=== PATIENT | female | born 1965 ===

== ENCOUNTER 2025-01-09 21:04 | Emergency (ER) | payer BC, SELFPAY ==
[2025-01-09 21:09] VITALS: BP 152/82; PULSE 75; RESP 16; TEMP 37.2; O2SAT 98; BMI 23.6
--- NOTE | 2025-01-09 21:12 | ED_ITS ---
HPI - General Adult General Chief complaint: Extremity Pain/Injury, Lower Stated complaint: Fall, left knee, right ankle Time Seen by Provider: 01/09/25 21:12 History of Present Illness HPI narrative: stepped off stair and roll R ankle. denies hx of other injuries to this ankle. L knee scrape. denies other injuries. took 800 ibuprofen 51-year-old woman presenting to the emergency department with primary complaint of pain in the right ankle. She was wearing flip-flops and somehow stepped off the stair maybe onto her boots that were there and rolled her ankle. Has been unable to bear weight. Also landed on her left knee. Can bear weight on the left leg. Does not describe hitting her head. No complaint of back or neck pain. Took 800 mg of Advil. Not sure that she could tolerate icing at this point as even light touch is terribly painful. Related Data Home Medications ?Medication ?Instructions ?Recorded ?Confirmed lisinopril .ROUTE 01/09/25 Allergies Allergy/AdvReac Type Severity Reaction Status Date / Time bee venom protein (honey bee) Allergy Verified 01/09/25 21:11 Review of Systems Status of ROS: Reports: 6 or more systems reviewed and unremarkable except as noted in History and below Exam Narrative: Exam Narrative: Arrives in wheelchair. Pleasant. Clearly uncomfortable. Right leg elevated somewhat on to the exam bed. Breathing easily. There is a small abrasion on the anterior left knee without notable swelling. She flexes and extends at this knee joint without apparent difficulty. The right ankle is notably swollen over both malleoli. Exquisitely tender to palpation particularly over the lateral malleolus. I would not be able to do reliable testing of ligamentous structures due to pain at this time. Const: Vital Signs, click to edit/add: Vital Signs - 24 hr 01/09/25 21:09 Temperature 98.9 F Pulse Rate [Pulse Oximeter] 75 Respiratory Rate 16 Blood Pressure [Ri ght Upper Arm] 152/82 H Pulse Oximetry 98 Oxygen Delivery Me thod Room Air Documenting provider has reviewed patient's vital signs: yes Course Vital Signs Vital signs: Initial Vital Signs Temperature 98.9 F 01/09/25 21:09 Temperature Source Temporal Artery Scan 01/09/25 21:09 Pulse Rate 75 01/09/25 21:09 Respiratory Rate 16 01/09/25 21:09 Blood Pressure 152/82 H 01/09/25 21:09 Blood Pressure Mean 105 01/09/25 21:09 Blood Pressure Position Sitting 01/09/25 21:09 Pulse Oximetry 98 01/09/25 21:09 Oxygen Delivery Method Room Air 01/09/25 21:09 Vital Signs Temperature 98.9 F 01/09/25 21:09 Pulse Rate 75 01/09/25 21:09 Respiratory Rate 16 01/09/25 21:09 Blood Pressure 152/82 H 01/09/25 21:09 Pulse Oximetry 98 01/09/25 21:09 Oxygen Delivery Method Room Air 01/09/25 21:09 Temperature 98.9 F 01/09/25 21:09 Pulse Rate 75 01/09/25 21:09 Respiratory Rate 16 01/09/25 21:09 Blood Pressure 152/82 H 01/09/25 21:09 Pulse Oximetry 98 01/09/25 21:09 Oxygen Delivery Method Room Air 01/09/25 21:09 Medical Decision Making MDM Narrative Medical decision making narrative: I do have concerns of possible distal fibular fracture but certainly at least ankle sprain. Cannot pass [place] ankle rules. Does not feel she wants any medication at this time or icing. I have ordered x- rays of the right ankle. X-ray the right ankle independently reviewed by me does show oblique fracture of the distal fibula/lateral malleolus. I do think there is some mild displacement and I think there is mild widening of the medial joint space consistent with mortise disruption. There may be a small fracture off the posterior aspect of the distal tibia. Did call to Orthopedics to arrange follow-up. They expressed similar concerns of this ankle joint. I did return to place in a padded Freddie Owen splint. Given crutches. See patient discharge plan for further discussion You might consider applying ice packs. I like those ice bags with the screw top lid that you can feel with ice and water. Wrap on with an James wrap. Of course though this requires removing the splint to be effective. Otherwise elevate for comfort. Can take up to 800 mg of ibuprofen or up to 1000 mg of acetaminophen per dose. I am prescribing some [place] from [facility]. Keep in mind that each tablet of [place] contains 325 mg of acetaminophen. Recommendations are not to bear weight on this foot at this time. So of course dispensing crutches. Anticipate a call from Orthopedics sometime tomorrow to schedule follow-up likely later this week. If you do not hear from them by noon tomorrow feel free to call [phone] arrange follow-up. Discharge Plan Discharge Clinical Impression: Fracture of distal fibula Patient Disposition: Home w/ Parent or Adult Condition: Stable Additional Instructions: You might consider applying ice packs. I like those ice bags with the screw top lid that you can feel with ice and water. Wrap on with an James wrap. Of course though this requires removing the splint to be effective. Otherwise elevate for comfort. Can take up to 800 mg of ibuprofen or up to 1000 mg of acetaminophen per dose. I am prescribing some [place] from [facility]. Keep in mind that each tablet of [place] contains 325 mg of acetaminophen. Recommendations are not to bear weight on this foot at this time. So of course dispensing crutches. Anticipate a call from Orthopedics sometime tomorrow to schedule follow-up likely later this week. If you do not hear from them by noon tomorrow feel free to call [phone] arrange follow-up. Prescriptions: No Action lisinopril .ROUTE Follow Up/Referrals: Clayton Morin MD [Primary Care Provider, PRN OCCUPATIONAL THERAPIST] Stand Alone Forms: [facility] Info Instructions
--- NOTE | 2025-01-09 21:20 | CRLHL7_ITS ---
For Patients: As a result of the Century Cures Act, medical imaging exams and procedure reports are released immediately into your electronic medical record. You may view this report before your referring provider. If you have questions, please contact your health care provider. Indication: Trauma. Technique: Right ankle, 3 views. Comparison: None. Findings/Impression: Bones: Acute mildly displaced oblique lateral malleolar fracture (Maciel B). Additional acute minimally displaced posterior malleolar fracture, best seen on lateral imaging. Joint spaces: Trace widening of the medial clear space. Associated joint effusion. Soft tissues: Associated soft tissue swelling about the lateral malleolus. Dictated by Hugo Black MD @ 01/09/2025 10:02:40 PM (Electronically Signed)
--- NOTE | 2025-01-09 21:30 | PC.NURSE ---
imaging to room
--- OUTSIDE RECORDS SUMMARY | 2025-01-09 21:44 | XMS_ITS | Data Portability ---
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 We discussed etiology, activity modifications, home care, and other treatment options. Initially, it is recommended that the patient receive in-office treatment 1 times per week for 8 weeks at which time a re-evaluation will be performed to determine an appropriate change in plan. Initially, treatment will focus on joint manipulation to restore range of motion and reduce pain. We will slowly progress to therapeutic exercises and activities to improve function, strength, and stability may also be used as warranted. If the patient is not responding as expected, more invasive procedures will be discussed along with a referral. All considerations above were discussed with the patient and questions answered to satisfaction. If the patient should have any additional questions, or should the condition evolve or worsen, the patient should not hesitate to contact our office. Not available 10/05/2024 19:57:50 10/10/2024 10/10/2024 ASSESSMENT: Patient is a good candidate for conservative care and the prognosis is for a favorable outcome that achieves the patients' goals. We discussed etiology, activity modifications, home care, and other treatment options. Initially, it is recommended that the patient receive in-office treatment 1 times per week for 8 weeks at which time a re-evaluation will be performed to determine an appropriate change in plan. Initially, treatment will focus on joint manipulation to restore range of motion and reduce pain. We will slowly progress to therapeutic exercises and activities to improve function, strength, and stability may also be used as warranted. If the patient is not responding as expected, more invasive procedures will be discussed along with a referral. All considerations above were discussed with the patient and questions answered to satisfaction. If the patient should have any additional questions, or should the condition evolve or worsen, the patient should not hesitate to contact our office. Not available 10/10/2024 18:51:00 10/18/2024 10/18/2024 ASSESSMENT: Patient is a good candidate for conservative care and the prognosis is for a favorable outcome that achieves the patients' goals. We discussed etiology, activity modifications, home care, and other treatment options. Initially, it is recommended that the patient receive in-office treatment 1 times per week for 8 weeks at which time a re-evaluation will be performed to determine an appropriate change in plan. Initially, treatment will focus on joint manipulation to restore range of motion and reduce pain. We will slowly progress to therapeutic exercises and activities to improve function, strength, and stability may also be used as warranted. If the patient is not responding as expected, more invasive procedures will be discussed along with a referral. All considerations above were discussed with the patient and questions answered to satisfaction. If the patient should have any additional questions, or should the condition evolve or worsen, the patient should not hesitate to contact our office. Not available 10/18/2024 19:48:47 Plan of Treatment Reminders Order Date Submit Date Provider Last Modified By Organization Details Last Modified Time Details Appointments None record ed. Lab None record ed. Referral None record ed. Procedures None record ed. Surgeries None record ed. Imaging None record ed. Medication Orders None record ed. Patient TargetsNo targets recorded. Patient InstructionsNo instructions recorded. Reason for Referral None Reported. Problems Name Problem SNOMED Code Status Onset Date Resolution Date Notes Provider Name and Address Organization Details Recorded Time Neck pain 20936093 Active 2024 [facility] [place] [address], [facility] [place], [address], [facility] 19:57:51 Cervical segmental dysfunction 259223315 Active 2024 [facility] [place], [place] [address], [facility] [place], [address], [facility] 19:57:51 Thoracic segmental dysfunction 092255082 Active 2024 [facility] [place] [address], [place], [address], [facility] 19:57:51 Lumbar segmental dysfunction 185973450 Active 2024 Mendez Stephen [place] [address], [place], [address], [facility] 19:57:51 Lesion of lumbar spine 449468646 Active 2024 [facility] [place] [address], [place], [address], [facility] 19:57:51 Problem Notes None recorded. Procedures Surgical History Date Name Laterality Status Provider Name and Address Organization Details Recorded Time 34466: Spinal manipulation , 3 to 4 regions completed [facility] Preston Hailee[address], [place], [address], [facility] 10/18/2024 19:48:47 94699: Spinal manipulation , 3 to 4 regions completed [facility] Preston Stephen[address], [place], [address], [facility] 10/10/2024 18:51:00 26895: Spinal manipulation , 3 to 4 regions completed [facility] Anjelica[address], [place], [address], [facility] 10/05/2024 19:58:09 Imaging Results None recorded. Procedure Notes None recorded. Medical Equipment None Reported. Medications Name Sig Start Date Stop Date Status Note LastModified by Organization Details LastModified Time buspirone 10 mg tablet TAKE 1 TABLET BY MOUTH TWICE DAILY active Not Available Not Available No t Available lisinopril 10 mg tablet TAKE 1 TABLET BY MOUTH ONCE DAILY active Not Available Not Available No t Available epinephrine 0.3 mg/0.3 mL injection, auto-injector INJECT CONTENTS OF 1 PEN NEEDED FOR ALLERGIC REACTION DIRECTED active Not Available Not Available No t Available Vitals None Recorded Social History None recorded. Functional Status None recorded. Mental Status None recorded. Family History Nothing Reported. Medical History No medical history recorded. Gynecological HistoryNo gynecological history recorded. Obstetrics History GPAL:G 0 P 0 0 0 0 Past Encounters Encounter ID Performer Location Encounter Start Date Encounter Closed Date Diagnosis/Indication Diagnosis SNOMED-CT Code Diagnosis ICD10 Code Diagnosis Note [id number] Mendez Stephen [place] [facility] [address] [place] [address] 10/05/2024 14:59:02 10/06/2024 11:20:42 Cervical segmental dysfunction 648327348 M99.01 Neck pain 40882301 M54.2 Thoracic s egmental dysfunction 107428658 M99.02 Lumbar seg mental dysfunction 729975774 M99.03 Lesion of lumbar spine 713145988 M99.01 [id number] Mendez Stephen [place] [address] [place] [address] 10/10/2024 14:57:18 10/10/2024 20:34:07 Cervical segmental dysfunction 767332331 M99.01 Neck pain 72022009 M54.2 Thoracic s egmental dysfunction 860106014 M99.02 Lumbar seg mental dysfunction 684247417 M99.03 Lesion of lumbar spine 698763730 M99.01 [id number] Mendez Stephen [place] [address] [place] [address] 10/18/2024 15:11:27 10/20/2024 18:22:57 Cervical segmental dysfunction 164059608 M99.01 Neck pain 00464608 M54.2 Thoracic s egmental dysfunction 361744892 M99.02 Lumbar seg mental dysfunction 919287498 M99.03 Lesion of lumbar spine 322622483 M99.01 Health Concerns Section Related Observation LastModified by Organization Detai ls LastModified Time None Recorded Concern Status LastModified by Organization Details LastModified Time None Recorded Advance Directives Directive None Recorded Payers Insurance Date Sequence Insurance Name Policy Number Policy Boyd Covered Member ID Boyd Member ID Guarantor Name 10/17/2024 1 [employer] [employer] [id number] Ruth Ann Garcia [id number] Ruth Ann Garcia Notes Date Note Type Note Provider Name and Address Organization Details Recorded Time 10/05/2024 text/html HPI - Cervical SpineReported bypatient.Location: left Quality:aching Severity:moderate Duration:2 weeks Timing:gradual Alleviating Factors:ice Aggravating Factors:sitting Associated Symptoms:no numbness/tingling [place], [place] [address], [place], [address], [facility] 10/05/2024 19:58:19 10/10/2024 text/html HPI - Cervical SpineReported bypatient.Location: left Quality:aching Severity:moderate Duration:2 weeks Timing:gradual Alleviating Factors:ice Aggravating Factors:sitting Associated Symptoms:no numbness/tingling Scot [place], [place] [address], [place], [address], [facility] 10/10/2024 18:51:21 10/18/2024 text/html HPI - Cervical SpineReported bypatient.Location: left Quality:aching Severity:moderate Duration:2 weeks Timing:gradual Alleviating Factors:ice Aggravating Factors:sitting Associated Symptoms:no numbness/tingling Scot Preston [place], [place] [address], [place], [address], [facility] 10/18/2024 19:48:58 OBGyn Episode No OBEpisode recorded.
--- OUTSIDE RECORDS SUMMARY | 2025-01-09 21:44 | XMS_ITS | Data Portability ---
Author Organization [facility] [employer], [id number] Address [address] [facility] [place] [place] [address] Assessment No assessment recorded. Plan of Treatment Reminders Order Date Submit Date Provider Last Modified By Organization Details Last Modified Time Details Appointments None record ed. Lab noninv asive colore ctal cancer DNA + occult blood screen ing, QL, stool 2023 024 [facility] (Cologuard Orders Only), [address], [address], [place], [address], 5 09:22:07 Pap test, slide( s), cervic al 2023 024 [facility], [address] [facility], [address], [place], [address], 4 09:37:25 Pap test, slide( s), cervic al 2022 023 [facility], [address] [facility] [place], [address], [place], [address], 3 16:50:33 noninv asive colore ctal cancer DNA + occult blood screen ing, QL, stool 2022 023 [facility] (Cologuard Orders Only), [address], [address], [place], [address], 4 12:40:44 Referral None record ed. Procedures None record ed. Surgeries None record ed. Imaging US, pelvis 2021 Arturo teresitabrittanituchristopher [id number] bijal, [address] [facility], [address], [place], [address], 16:05:55 Medication Orders None record ed. Patient TargetsNo targets recorded. Patient Instructions Encounter Date Encounter Id Patient Instructions Last Modified By Organization Details Last Modified Time 01/04/2023 [id number] - Encouraged breast self-awareness and monthly breast exams. - Calcium and vitamin D intake discussed. - Encouraged regular exercise. - Discussed cervical cancer screening guidelines. - Discussed routine screenings including mammography, colonoscopy and laboratory screening guidelines [facility] Not available 01/04/2023 14:13:38 01/10/2024 [id number] - Encouraged breast self-awareness and monthly breast exams. - Calcium and vitamin D intake discussed. - Encouraged regular exercise. - Discussed cervical cancer screening guidelines. - Discussed routine screenings including mammography, colonoscopy and laboratory screening guidelines [email or web address] Not available 01/10/2024 12:55:55 Reason for Referral None Reported. Results Created Date Observation Date Name Description Value Unit Range Abnormal Flag Note LastModifiedBy Organization Detail LastModifiedTime 11/17/1911/16/2024 COLOG UARD cologuard result Cancel led - Duplic ate Order not applic able Not Available [facility] (Cologuard Orders Only) [address], [place], [address], 11/16/2024 14:21:37 01/04/20 24 01/04/2024 COLOG UARD cologuard result Cancel led - Order d not applic able Not Available [facility] (Cologuard Orders Only) [address], [place], [address], 01/04/2024 12:40:44 12/23/19 23 12/22/2022 COLOG UARD cologuard result Cancel led - Order d not applic able Not Available [facility] (Cologuard Orders Only) [address], [place], [address], 12/22/2022 10:35:34 02/03/20 22 02/02/2022 pregn dary test, urine Unknown Analyte negati ve Not Available [id number]_ [place] [address], [place], [address], 02/02/2022 15:17:26 02/03/20 22 02/02/2022 pregn dary test, urine Unknown Analyte negati ve Not Available [id number] [place] [address] [address], [place], [address], 02/02/2022 15:17:26 01/05/20 23 01/04/2023 GYNEC OLOGI C CYTOL OGY (PAP SMEAR ) gynecologic cytology SEE RESULT S BELOW SPECI MEN SOURC E [place] ing Cervi x 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 Pap tests are prima rily effec tive for the diagn osis/ preve ntion of squam ous cell carci noma, not adeno carci noma or other cance rs. 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 Pap tests are prima rily effec tive for the diagn osis/ preve ntion of squam ous cell carci noma, not adeno carci noma or other cance rs. 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 Stain contr ols for all stain s resul jason withi n this repor t have been revie wed and show appro priat e react ivity . Not Available [facility] [address] [facility] [address], [place], [address], 01/14/2024 09:37:25 02/10/20 22 02/09/2022 US, pelvi s No observ ation record ed. [email or web address] [address], [place], [address], 02/09/2022 15:33:10 01/06/20 23 01/05/2023 2D/3D scree sarah mammo gram No observ ation record ed. [email or web address] [address] [facility], [place], [address], 01/05/2023 13:50:02 01/10/20 24 01/10/2024 MAMMO , scree sarah, digit al, bilat eral, w/ CAD No observ ation record ed. [email or web address] [facility] [address] [facility], [place], [address], 01/11/2024 09:57:03 Result Notes None recorded. 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 Procedures Surgical History Date Name Laterality Status Provider Name and Address Organization Details Recorded Time 4 Date of Last Pap Smear completed Ирина Bo [facility] [employer] 01/14/2024 09:44:48 4 Date of Last Mammogram completed Destiny Tijerina [facility] [employer] 01/10/2024 12:57:45 2 IUD Insertion Procedure Note ([facility]) completed [facility] [employer] 02/13/2022 15:22:23 2 IUD Insertion Procedure Note ([facility]) completed Jayshree Chanel (TERMED) [facility] [employer] 02/02/2022 15:18:02 2 IUD Removal Procedure Note ([facility]) [place] [address] [facility],[address], [place], [address], [facility] [employer] 12/22/2021 15:54:48 Breast Implants completed [facility] [employer] 11/18/2020 14:17:25 Imaging Results None recorded. Procedure Notes None recorded. Medical Equipment None Reported. Allergies Allergen ID Allergen Name Allergen Category Reaction Reaction Severity Criticality Documentation Date Start Date Code Code System Note Provider Name and Address Organization Details Recorded Time 19790830 insect venom environme nt anaphylax is respirato ry distress Not available Not available Not available 11/18/2020 12577 UNK Ирина Bo null, [place] [facility] [employer] [employer] 1 14:16:49 [id number] Substance with sulfonami de structure and antibacte rial mechanism of action (substanc e) medicatio n other Not available Not available 01/04/2023 00854 8003 SNOMED Jonh Hemstock dorita, [place] - [facility] [employer] 3 14:14:30 Medications Name Sig Start Date Stop Date Status Note LastModified by Organization Details LastModified Time Mirena 21 mcg/24 hr (up to 8 years) 52 mg intrauter ine device Take by intraute rine route. 2021 active Inserted 02/14/20 22 Not Available Not Available Not Available fluconazo le 150 mg tablet TAKE 1 TABLET BY MOUTH AND ADDITION AL TABLET 3 DAYS LATER. 01/04 completed Not Available Not Available Not Available metronida zole 0.75 % (37.5 mg/5 gram) vaginal gel INSERT 1 APPLICAT ORFUL VAGINALL Y ONCE DAILY FOR 5 DAYS 12/22 completed Not Available Not Available Not Available prednison e 20 mg tablet 12/22 completed Not Available Not Available Not Available terbinafi ne HCl 250 mg tablet TAKE 1 TABLET BY MOUTH ONCE DAILY 11/18 completed Not Available Not Available Not Available cephalexi n 500 mg capsule TAKE 1 CAPSULE BY MOUTH THREE TIMES DAILY FOR 7 DAYS 01/04 completed Not Available Not Available Not Available buspirone 10 mg tablet TAKE 1 TABLET BY MOUTH TWICE DAILY active Not Available Not Available No t Available lisinopri l 10 mg tablet TAKE 1 TABLET BY MOUTH ONCE DAILY active Not Available Not Available No t Available misoprost ol 200 mcg tablet Take 2 tablets by oral route as directed . 02/13 completed Not Available Not Available Not Available epinephri ne 0.3 mg/0.3 mL injection , auto-inje ctor INJECT CONTENTS OF 1 PEN NEEDED FOR ALLERGIC REACTION DIRECTED active Not Available Not Available No t Available doxycycli ne hyclate 100 mg tablet TAKE 1 TABLET BY MOUTH TWICE DAILY FOR 5 DAYS 01/09 completed Not Available Not Available Not Available amoxicill in 875 mg-potass ium clavulana te 125 mg tablet TAKE 1 TABLET BY MOUTH TWICE DAILY WITH MEALS FOR 5 DAYS 01/09 completed Not Available Not Available Not Available EpiPen active Not Available Not Availa ble Not Available BinaxNOW COVID-19 Ag Self Test kit Use as Directed on the Package 01/04 completed Not Available Not Available Not Available Vitals Date Recorded Body height Body mass index (BMI) Body weight Systolic And Diastolic Provider Name and Address Organization Details Last Updated DateTime 01/04/2023 175.26 cm 25.5 kg/m2 29496.48 g 120/80 mm[Hg] Jonh [facility] - [employer] 01/04/2023 14:23:24 Date Recorded Body weight Systolic And Diastolic Provider Name and Address Organization Details Last Updated DateTime 01/10/2024 62051.77 g 120/76 mm[Hg] Sherice Reyna (TERMED) [facility] [employer] 01/10/2024 15:12:27 Date Recorded Body height Body mass index (BMI) Body weight Systolic And Diastolic Provider Name and Address Organization Details Last Updated DateTime 02/09/2022 175.26 cm 10.8 kg/m2 89461.24 g 130/82 mm[Hg] Maranda Costello(TER M) [facility] [employer] 02/09/2022 15:21:26 Date Recorded Body height Systolic And Diastolic Provider Name and Address Organization Details Last Updated DateTime 02/13/2022 175.26 cm 122/80 mm[Hg] Yessi Richie(TERM) [facility] [employer] 02/13/2022 14:29:38 Social History Question Answer Notes LastModified by Organizat ion Details LastModified Time Tobacco Smoking Status Former Smoker Yelena kevin, [facility] [employer] 11/18/2020 09:14:25 Do You Have An Advance Directive? No [email or web address] Information not available 01/04/2023 Is Blood Transfusion Acceptable In An Emergency? Yes [email or web address] Information not available 01/04/2023 What Is Your Level Of Caffeine Consumption? None [email or web address] Information not available 01/04/2023 How Much Tobacco Do You Chew? None [email or web address] Information not available 01/04/2023 What Type Of Diet Are You Following? REGULAR [email or web address] Information not available 01/04/2023 History Of Domestic Violence No Information no t available 11/18/2020 Marital Status Single [email or web address] Informatio n not available 01/04/2023 What Is Your Relationship Status? [email or web address] Information not available 01/04/2023 Are You Sexually Active? Yes Information not available 12/22/2021 Sex: Unknown Functional Status Question Answer Note LastModified by Organizat ion Details LastModified Time What is your level of alcohol consumption? Moderate Information not available 11/18/2020 Are you currently employed? 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 Never used electronic cigarettes [email or web address] Information not available 01/04/2023 What is your exercise level? Occasional [email or web address] Information not available 01/04/2023 Mental Status None recorded. Family History Relationship Description Onset Age of this Age Resolved Age Notes LastModified by Organization Details LastModified Time Mother Malignant neoplasm of uterus [email or web address] Not available 09:13:57 Mother Malignant neoplasm of lung [email or web address] Not available 2023 15:02:58 Paternal Aunt Malignant tumor of breast [email or web address] Not available 2021 15:03:05 Sister Malignant tumor of breast 52 KANE mutati on Not available 12/22/2021 15:20:00 Medical History Condition Response ID- Usual childhood diseases- Chicken Po x Y Cardiology- High Blood Pressure Y Gynecological History Statement/Question Response Sexually Active Y History of Abnormal PAP N HPV Test Negative Date of Last Mammogram 01/10/2024 Date of Last Colonoscopy Date of LMP 01/29/2022 History of Sexually Transmitted Infectio n N Y HPV Vaccine Not Applicable Current Control Method IUD Date of Last Pap Smear 01/10/2024 15 Post Menopausal Hormone Therapy User Nev er Obstetrics History GPAL:G 2 P 2 0 0 2 Type Value Multiple Births 0 Full Term 2 Induced 0 Spontaneous 0 Premature 0 Living 2 Ectopics 0 Total 2 Past Encounters Encounter ID Performer Location Encounter Start Date Encounter Closed Date Diagnosis/Indication Diagnosis SNOMED-CT Code Diagnosis ICD10 Code Diagnosis Note [id number] SIMIN SHINE MD [id number] T_ROBB SHINEA [address] [address] [place] [address] 11/18/2020 14:01:26 11/18/2020 14:43:11 Gynecologic examination 17804129 Z01.419 Patient reluctant to have IUD removed has concerns over bleeding mother went to menopause very late. We will keep her 1 more year and remove it next year [id number] SIMIN SHINE MD [id number] T_ROBB SHINEA [address] [address] [place] [address] 12/22/2021 15:27:21 12/22/2021 16:00:17 Gynecologic examination 96108976 Z01.419 Allergy to bee venom 424 330864 Z91.030 Hypertensive disorder 38 944574 I10 Screening for malignant neoplasm of colon 236536500 Z12.11 Family his tory of breast cancer 560394776 Z80.3 sister brca pos Removal of intrauterine device 95582439 Z30.607 [id number] MD LAKESHIA ALFONSO_NAVEEN Felix_EDUARDOKUMAR [address] [facility] [place] [address] 01/13/2022 15:02:59 01/13/2022 15:39:30 Family history of breast cancer 642080428 Z80.3 sister brca pos [id number] MD [facility] ESPINAL [address] [address] [place] [address] 02/02/2022 14:55:48 02/02/2022 15:26:44 Insertion of intrauterine contraceptive device 87146355 Z30.430 Postmenopa usal bleeding 49932562 N95.0 Patient with a large volume of bleeding after IUD removal. States her mother went through menopause fairly light. Discussed implicatio ns of bleeding at 56. Want to rule out endometria l issues i.e. endometria l cancer prior to any interventi on. We will perform ultrasound if greater than 4 mm we will proceed with a endometria l biopsy then discuss long-term management of issues [id number] MD KIRSTIN ALFONSO005_NAVEEN GoldsteinCLARAMERCEDEZ SHINE [address] [address] [place] [address] 02/09/2022 14:57:08 02/09/2022 15:44:04 Postmenopausal bleeding 48289965 N95.0 Patient with stable endometria l thickness but myomatous uterus. 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 Is considerin g her options but may return for a da Shahrzad hysterecto my and bilateral salpingo-o ophorectom y Uterine leiomyoma 077940 05 D25.9 Family his tory of breast cancer 325881125 Z80.3 sister brca pos kane pos [id number] SIMIN SHINE MD [id number]_HLCNAVEEN ESPINAL [address] [address] [place] [address] 02/09/2022 14:57:11 02/09/2022 15:55:18 Postmenopausal bleeding 55989463 N95.0 [id number] SIMIN SHINE MD SY059_JZZNAVEEN ESPINAL [address] [place] [address] 02/13/2022 14:14:29 02/13/2022 14:50:04 Insertion of intrauterine contraceptive device 70532994 Z30.478 [id number] MD KIRSTIN ALFONSO005_NAVEEN ESPINAL [address] [address] [place] [address] 01/04/2023 14:00:50 01/04/2023 14:53:49 Gynecologic examination 15556220 Z01.419 Screening for malignant neoplasm of colon 718178812 Z12.11 [id number] SIMIN SHINE MD [id number]_NNZNAVEEN ESPINAL [address] [address] [place] [address] 01/10/2024 15:02:56 01/10/2024 15:45:57 Gynecologic examination 41354024 Z01.419 Patient still considerin g hysterecto my for fibroids in her positive genetic markers increase your risk of multiple breast and ovarian cancer. Screening for malignant neoplasm of colon 698783812 Z12.11 Screening for malignant neoplasm of cervix 180928307 Z12.4 Health Concerns Section Related Observation LastModified by Organization Detai ls LastModified Time None Recorded Concern Status LastModified by Organization Details LastModified Time None Recorded Advance Directives Directive N: Payers Insurance Date Sequence Insurance Name Policy Number Policy Boyd Covered Member ID Boyd Member ID Guarantor Name 01/14/2024 1 [place] [employer] 112 Ruth Ann Garcia [id number] Ruth Ann Garcia Notes Date Note Type Note Provider Name and Address Organization Details Recorded Time 02/09/2022 text/html Review u/s:pt wi th post menopausal bleeding had ultrasound today which showed endometrial thickness of 2.3 mm. Also revealed [place] [address] [address] [facility], [place], [address], [place] - [facility] [employer] 02/09/2022 15:45:10 01/04/2023 text/html Annual Postmenop ausal ([facility])Reported bypatient.Patient Relationship To Practice:established patient Current Medical History:active medical problems stable; no recent surgeries or hospitalizations Relevant Family History:family history of breast cancer;family history of uterine cancer; no family history of ovarian cancer; no family history of colon cancer; no family history of blood clots/DVT Menopausal Symptoms:not present Vaginal Bleeding:no Sexually Active:Yes: STI Screen:declines Health/Prevention:Exer cise: yes; Vitamin D: no; Adequate Calcium Intake: yes; Breast Self Exam: yes; Tobacco Use: no; Safe at home: yes; Mental Health Screen: normal; Breast/Ovarian CA Screening: yes Mammogram:up-to-date Pap Smear +/- HPV Cotesting:up-to-date; 12-22-2021- negative pap, negative hpv Thyroid/Lipid Screening:due Colonoscopy:dueNotes:r equesting [facility] labs. patient still considering definitive therapy for her family history. At this point no other complaints was able to get the MRI done last year from a breast cancer standpoint. Mammogram today The patient completed the familial health questionnaire. She is at high risk for a genetic cancer syndrome.Hereditary Cancer Risk Assessment HPI.Risk The patient completed the familial health questionnaire. She is at high risk for a genetic cancer syndrome. A known gene mutation in your family? Yes Three or more diagnoses of breast cancer on the same side of the family? Yes Breast or prostate cancer in 3 or more relatives on the same side of the family? Yes Imported from [employer] on 01/04/2023 The patient completed the familial health questionnaire. She is [place] [address] [address], [place], [address], [place] - [facility] [employer] 01/04/2023 14:36:27 01/10/2024 text/html Annual Postmenop ausal ([facility])Reported bypatient.Patient Relationship To Practice:established patient Current Medical History:active medical problems stable; no recent surgeries or hospitalizations Relevant Family History:family history of breast cancer;family history of uterine cancer; no family history of ovarian cancer; no family history of colon cancer; no family history of blood clots/DVT Menopausal Symptoms:not present HRT:never on HRT Vaginal Bleeding:no Sexually Active:Yes: STI Screen:declines Health/Prevention:Exer cise: yes; Vitamin D: no; Breast Self Exam: yes; Safe at home: yes Mammogram:up-to-date; 01/10/2024 Pap Smear +/- HPV Cotesting:up-to-date; 01-04-2023- negative pap, Thyroid/Lipid Screening:due Colonoscopy:due Patient has:Primary Care Physician: noNotes:Pt presents for annual exam. no questions/concerns. nb/rn The patient completed the familial health questionnaire. She is at for a genetic cancer syndrome.Hereditary Cancer Risk Assessment HPI.Risk The patient completed the familial health questionnaire. She is at high risk for a genetic cancer syndrome. A known gene mutation in your family? Yes Three or more diagnoses of breast cancer on the same side of the family? Yes Breast or prostate cancer in 3 or more relatives on the same side of the family? Yes Imported from [facility] on 01/10/2024 [place] [address] [facility],[address], [place], [address], [place] - [facility] [employer] 01/10/2024 15:42:05 OBGyn Episode No OBEpisode recorded.
--- OUTSIDE RECORDS SUMMARY | 2025-01-09 21:44 | XMS_ITS | Clinical Summary ---
Author Organization [employer] [facility] Address [address] [place] [id number] Care Team Providers Care Software Specialist Name Role Phone Radha Arriola Unavailable Unavailable Pau Guerrero Primary Care Provider [phone] Allergies Active Allergy Reactions Criticality Noted Date Comments Hymenoptera Allergenic Extract Rash,Tongue Swelling High 04/02/2008 Redness every where Medications EPINEPHrine (EpiPen) 0.3 mg/0.3 mL injectionIndicat ions:Anaphylaxis , initial encounter,Bee sting, accidental or unintentional, initial encounter Inject 0.3 mg intramuscular one time if needed for Allergic Reaction for up to 1 dose. 2 Each 3 02/16/20 21 Active lisinopriL (PRINIVIL; ZESTRIL) 10 mg tabletIndication s:Essential hypertension Take 1 tablet by mouth once daily 90 Tablet 1 07/27/19 22 Active busPIRone (BUSPAR) 10 mg tabletIndication s:Anxiety TAKE 1 TABLET BY MOUTH THREE TIMES DAILY 90 Tablet 01/27/20 22 Active levonorgestrel (Mirena) 20 mcg/24 hours (8 yrs) 52 mg intrauterine device (IUD) Take by intrauterine route. 02/14/20 22 Active Active Problems Problem Noted Date Diagnosed Date Anxiety 07/23/2020 Essential hypertension 05/12/2019 MS (multiple sclerosis) 06/15/2014 Overview (07/23/2020): Dx 2004 Immunizations Immunization Administration Dates Next Due Td (Age >=7 Years) 04/14/2005 Tdap 11/07/2015 Family History Medical History Relation Name Comments Good Health Father Cancer Mother lung, endometri um cancer Relation Name Status Comments Father Mother Social History Tobacco Use Types Packs/Day Years Used Date Smoking Tobacco: Former Cigarettes Q uit: 06/28/1996 Smokeless Tobacco: Never Alcohol Use Standard Drinks/Week Comments Yes 4.2 (1 standard drink = 0.6 oz p ure alcohol) PHQ-2 Answer Date Recorded PHQ-2 TOTAL SCORE 0 09/02/2022 Social Connections Answer Date Recorded Frequency of Communication with Friends and Fami ly Not on file 09/07/2023 Financial Resource Strain Answer Date R ecorded Difficulty of Paying Living Expenses 3 08/25/2022 Difficulty of Paying Living Expenses Not on file 08/25/2022 Food Insecurity Answer Date Recorded Worried About Running Out of Food in the Last Ye ar 1 08/25/2022 Transportation Needs Answer Date Record ed Lack of Transportation (Medical) 1 08/25/2022 Housing Stability Answer Date Recorded Unable to Pay for Housing in the Last Year 1 08/25/2022 Comments No Sex and Gender Information Value Date Recorded Sex Assigned at Not on file Legal Sex Female 5:57 AM INTERNAL INVESTIGATOR Gender Identity Not on file Sexual Orientation Not on file Obstetrics History Last Filed Vital Signs Vital Sign Reading Time Taken Comments Blood Pressure 120/64 07/08/2023 12:28 PM INTERNAL INVESTIGATOR Pulse 80 07/08/2023 12:28 PM INTERNAL INVESTIGATOR Temperature 36.6 C (97.9 F) 07/08/2023 12:28 PM INTERNAL INVESTIGATOR Respiratory Rate 18 02/15/2021 6:15 PM CDT Oxygen Saturation 97% 09/02/2022 1:47 PM INTERNAL INVESTIGATOR Inhaled Oxygen Concentration - - Weight 82.1 kg (181 lb) 07/08/2023 12:28 PM INTERNAL INVESTIGATOR Height 175.3 cm (5' 9) 09/02/2022 1:47 PM INTERNAL INVESTIGATOR Body Mass Index 26.73 09/02/2022 1:47 PM INTERNAL INVESTIGATOR Plan of Treatment Health Maintenance Due Date Last Done Comments HIV for age 15-65 1981 Hepatitis C screening for ag e 18-79 1984 Hepatitis B series for 19+ ( 1 of 3 - 19+ 3-dose series) 1985 Colonoscopy through age 75 2011 Pneumococcal series for age 50+ (1 of 1 - PCV) 2016 Zoster (shingles) series for age 50+ (1 of 2) 2016 Mammogram for age 45-75 12/22/2022 12/23/19 22, 12/22/2021, 11/05/2020, Additional history exists BMI (ht and wt on same day) for age 18+ 09/03/2023 09/02/2022, 07/23/2020, 05/12/2019 Depression screening for age 12+ 09/03/2023 09/02/2022, 07/24/2020, 07/23/2020 Pap test for age 21-65 11/19/2023 (Verified in Care Everywhere or Patient Record) COVID-19 vaccine series ( season) 2024 Lipids for age 45-75 05/12/2024 05/12/2019 Influenza Vaccine (#1) 2025 Tetanus booster 11/06/2025 11/07/2015, 04/14/2005 Procedures Procedure Name Priority Date/Time Associated Diagnosis Comments SCAN-MAMMOGRAPHY REPORT 12/22/2021 12:22 PM CDT LIPID PANEL W REFLEX MEASURED LDL Routine 05/12/2019 1:58 PM INTERNAL INVESTIGATOR Lipid screening from Last 3 Months or Most Recently Relevant to Health Maintenance Results * SCAN-MAMMOGRAPHY REPORT (12/22/2021 12:22 PM CDT) Anatomical Region Laterality Modality Other us Scanner OTHER Final Result * LIPID PANEL W REFLEX MEASURED LDL (05/12/2019 1:58 PM INTERNAL INVESTIGATOR) CHOLESTEROL,TOTAL 159 100 - 199 mg/dL 05/12/2019 8:16 PM INTERNAL INVESTIGATOR [facility] TRIGLYCERIDES 43 <150 mg/dL 05/12/2019 8:16 PM INTERNAL INVESTIGATOR [facility] HDL CHOLESTEROL 100 >40 mg/dL 9 8:16 PM INTERNAL INVESTIGATOR [facility] NON-HDL CHOLESTEROL 59 <145 mg/dl 05/12/2019 8:16 PM INTERNAL INVESTIGATOR [facility] CHOL/HDL RATIO 1.59 <4.50 05/12/2019 8:16 PM INTERNAL INVESTIGATOR [facility] LDL CHOLESTEROL 50 <=130 mg/dL 05/12/2019 8:16 PM INTERNAL INVESTIGATOR [facility] PROVIDER ORDERED STATUS RANDOM 05/12/2019 8:16 PM INTERNAL INVESTIGATOR [facility] Blood BLOOD SPECIMEN / Unknown Venipuncture / Unknown 05/12/2019 1:58 PM INTERNAL INVESTIGATOR 05/12/2019 1:59 PM INTERNAL INVESTIGATOR us Niko Dean MD CHEMISTRY Final R esult [facility] [address] [place] [address], from Last 3 Months or Most Recently Relevant to Health Maintenance Insurance [facility] Care Teams Software Specialist Relationship Specialty [place] [address] [place] [address] PCP - General Physician Facility Mechanic 04/13/23 Flako, Obgyn Gynecology Obstetrics and Gynecology 01/03/21
== END 2025-01-09 22:36 | disposition home or self-care (01) ==
PROVIDERS: Emergency Provider Family Medicine; PCP Obstetrics & Gynecology
DX: S82.831A Other fracture of upper and lower end of right fibula, initial encounter for closed fracture (principal); X50.1XXA Overexertion from prolonged static or awkward postures, initial encounter
CPT/HCPCS: 29515; 73610; 99283; 99284

== ENCOUNTER 2025-01-11 10:42 | Outpatient (CLI) | payer BC, SELFPAY | END 2025-01-11 10:43 | disposition home or self-care (01) | LOC: LKVREF 10:42 | PROVIDERS: PCP Obstetrics & Gynecology; Visit Provider Emergency Medicine | DX: I10 Essential (primary) hypertension (principal) | CPT/HCPCS: 80048 ==

== ENCOUNTER 2025-01-17 09:04 | Day surgery (SDC) | payer BC, SELFPAY ==
[2025-01-17] VITALS (20 sets, daily range): BP systolic 103–129; BP diastolic 65–94; PULSE 56–97; RESP 14–73; TEMP 35.3–36.9; O2SAT 96–100; BMI 25.1
[2025-01-17] MEDS: LACTATED RINGERS 1000 ML 1,000 ML 100 ML IV (09:58)
[2025-01-17] MEDS: SODIUM CHLORIDE 0.9 % (FLUSH) 10 ML SYRINGE IVF (09:58)
--- NOTE | 2025-01-17 10:29 | SUR.PREOP ---
TIME?OUT:?1030 PT/RN/MDA?VERIFICATION?OF?SURGICAL?SITE,?PROCEDURE,?AND?CONSENT OBTAINED?PRIOR?TO?INVASIVE?PROCEDURE.
[2025-01-17] MEDS: MIDAZOLAM HCL 1 MG/ML inj IVP (10:32)
--- NOTE | 2025-01-17 11:41 | W.PM.NB ---
Nerve Block Nerve Block Time Seen by Provider: 10:35 Date Seen: 01/17/25 Type of block requested by surgeon for post-operative analgesia: popliteal Side: right Time out performed: Yes Verification of patient name: Yes Verification of date of : Yes Site marking: site marked Name of person performing procedure: Gordo Continuous monitoring Was continuous monitoring of O2 sat, B/P, potline monitor, recorded every 15 minutes?: Yes Procedure Checklist: sterile prep, needles and gloves Ultrasound guided. Images saved: Yes Medications given in 5ml increments after negative aspiration: Marcaine %: 0.25 mL: 20 Needle gauge: 22 Patient tolerated procedure well: Yes Additional comments: Needle noted adjacent to nerve Block Charges Block Charge (with Pro Fee): Sciatic Nerve Use of Ultrasound Machine for Block: Yes- US Guidance/pain block
--- NOTE | 2025-01-17 11:42 | P.ANES_ITS ---
Anesthesia Charges Start Date/Time Anesthesia Start Date: 01/17/25 Anesthesia Start Time: 11:23 Stop Date/Time Anesthesia Stop Date: 01/17/25 Anesthesia Stop Time: 12:46 Coding CPT Codes CPT Codes: ANESTH LOWER LEG BONE SURG - 21858 ([id number]) P2 - PATIENT W/MILD SYST DISEASE, QK - CREW CALLER 2-4 CNCRNT ANES PROC, QX - PAINTER AND DECORATOR SVC W/ MD MED DIRECTION
--- NOTE | 2025-01-17 11:42 | W.ANESCHARGE ---
Anesthesia Charges Start Date/Time Anesthesia Start Date: 01/17/25 Anesthesia Start Time: 11:23 Stop Date/Time Anesthesia Stop Date: 01/17/25 Anesthesia Stop Time: 12:46 Coding CPT Codes CPT Codes: ANESTH LOWER LEG BONE SURG - 23816 ([id number]) P2 - PATIENT W/MILD SYST DISEASE, QK - MANUFACTURING ACCOUNTANT 2-4 CNCRNT ANES PROC, QX - PRINTING EQUIPMENT MECHANIC SVC W/ MD MED DIRECTION
--- NOTE | 2025-01-17 12:31 | P.ORPRC_ITS ---
Procedure Note Date of procedure: 01/17/25 Procedure: PREOPERATIVE DIAGNOSES: 1. Right ankle lateral malleolus fracture (with bimalleolar equivalent) - unstable on stress imaging POSTOPERATIVE DIAGNOSES: 1. Right ankle lateral malleolus fracture (with bimalleolar equivalent) - uns table on stress imaging NAME OF OPERATION: 1. Right ankle lateral malleolus open reduction with internal fixation. 2. Intraoperative fluoroscopy operated and interpreted by Richard Jasso M.D. for intraoperative evaluation of fracture reduction and implant positioning. Fluoroscopy time was 24 seconds. SURGEON: Richard Jasso MD ACQUISITION LEAD: Armani GREENE; Of note, an assistant coach was critical for this case to aide in patient positioning, leg manipulation, tissue retraction, closure, patient safety, & splinting. ANESTHESIA: Spinal +/- popliteal block. EBL: 2 mL IMPLANTS: Arthrex 2.7 mm interfragmentary screw; also 1/3 tubular fibular locking plate with 3.5 mm locking screws. TOURNIQUET: 40 minutes at 250 torr. INDICATIONS: The patient is a pleasant, 59-year-old female who sustained a right ankle injury in the recent past. They had difficulty bearing weight. Workup included xrays which revealed an unstable ankle fracture. Given these fi ndings, surgery was recommended to stablize the ankle. FINDINGS: Closed, displaced right lateral malleolus ankle fracture (Maciel B location). Stress imaging showed increased clear space widening consistent with bimalleolar equivalent injury. PROCEDURE: Following a thorough discussion of risks, benefits, and alternatives, consent was obtained and the right ankle was marked. The patient was brought to the operating room and placed supine on the operating table. Induction of anesthesia was undertaken. Appropriate time out was performed identifying proper patient, site and procedure. 1 gram of iv Ancef was administered within 1 hour of incision preoperatively. The right lower extremity was prepped and draped in the appropriate sterile fashion using ChloraPrep prep. The limb was exsanguinated and the tourniquet inflated. A longitudinal incision was made overlying the distal fibula. Sharp incision through skin and subcutaneous tissue, while protecting any crossing neurologic structures, was performed allowing subperiosteal elevation. The fracture was encountered, and cleared of interposed periosteum and fracture hematoma. The joint was entered, and thoroughly irrigated with normal saline performed. The fracture was reduced and temporarily held with reduction clamps. An interfragmentary screw was drilled, measured, and placed with good compression across the fracture site. Thereafter, a 1/3 tubular locking plate was applied to the lateral fibula and 2 proximal 2 distal locking screws were placed. Excellent security to the fracture was achieved. After confirming appropriate reduction/positioning on C-arm fluoroscopic imaging, the fracture was stabilized with the hardware noted. Fluoroscopy was utilized for confirmation of screw length / positioning. Additionally, the syndesmosis was stressed and found to be stable. At this stage, the wound was thoroughly irrigated with normal saline. Closure was performed with #0 Vicryl for the deep periosteum, tourniquet deflated and hemostasis achieved. 3-0 Vicryl for the subcutaneous, and 4-0 statafix for subcuticular layers completed the closure. Dermabond was applied, dressings were applied, and a sugar-tong splint was applied. The patient was awoken from anesthesia and transferred to the PACU in stable condition. PLAN: 1. Elevate operative extremity. 2. Encouraged ice PRN. 3. Tylenol, ibuprofen, and/or Oxycodone for pain as needed. 4. Follow up with PA visit in 10-14 days with removal splint, transition to Cam boot, and initiate weightbear as tolerated. Then follow-up with me at the 6 w cabazon julio. Repeat x-rays right ankle-three views. 5. Toe touch weightbearing operative extremity at this time until 1st postop visit.
--- NOTE | 2025-01-17 12:47 | P.ANES_ITS ---
Anesthesia Charges Start Date/Time Anesthesia Start Date: 01/17/25 Anesthesia Start Time: 11:23 Stop Date/Time Anesthesia Stop Date: 01/17/25 Anesthesia Stop Time: 12:46 Coding CPT Codes CPT Codes: ANESTH LOWER LEG BONE SURG - 79952 ([id number]) P2 - PATIENT W/MILD SYST DISEASE, QK - CLAIM INVESTIGATOR 2-4 CNCRNT ANES PROC, QX - SUPERVISOR LUMP ROOM SVC W/ MD MED DIRECTION
--- NOTE | 2025-01-17 12:47 | W.ANESCHARGE ---
Anesthesia Charges Start Date/Time Anesthesia Start Date: 01/17/25 Anesthesia Start Time: 11:23 Stop Date/Time Anesthesia Stop Date: 01/17/25 Anesthesia Stop Time: 12:46 Coding CPT Codes CPT Codes: ANESTH LOWER LEG BONE SURG - 25193 ([id number]) P2 - PATIENT W/MILD SYST DISEASE, QK - ANIMAL BIOLOGIST 2-4 CNCRNT ANES PROC, QX - FUR FINISHER SVC W/ MD MED DIRECTION
[2025-01-17] MEDS: IBUPROFEN 200 MG TABLET 400 MG PO (13:43)
== END 2025-01-17 15:05 | disposition home or self-care (01) ==
LOC: OR 09:07
PROVIDERS: PCP Obstetrics & Gynecology; Visit Provider Orthopaedic Surgery Sports Medicine
PROC: (CPT 27792; principal; 2025-01-17 11:00)
DX: S82.61XA Displaced fracture of lateral malleolus of right fibula, initial encounter for closed fracture (principal); G89.18 Other acute postprocedural pain
CPT/HCPCS: 27792; 01480; 64445; 73600; 76000; 76942; A9270; C1713; J0665; J0690; J2250; J2704; J3010; J7120

== ENCOUNTER 2025-02-28 10:00 | Outpatient (RCR) | payer BC, SELFPAY | END 2025-06-06 10:58 | disposition home or self-care (01) | PROVIDERS: PCP Obstetrics & Gynecology; Visit Provider Physician Assistant Surgical | DX: Z48.89 Encounter for other specified surgical aftercare (principal); Z51.89 Encounter for other specified aftercare | CPT/HCPCS: 97110; 97140; 97161 ==